=== PATIENT | male | born 1980 | race Caucasian/White ===

== ENCOUNTER 2016-08-20 19:33 | Emergency (ER) | payer MEDICARE, BC ==
--- NOTE | 2016-08-20 19:48 | ER Document Report ---
ED Medical Screen (RME) - General Stated Complaint: POSSIBLE SEIZURE Notes: patient was home alone doing chores and took a nap pt says his mom called him and she was worried that he was slurring his speech pt states he felt disoriented for approximately < 5 minutes takes Keppra 1500mg BID last seizure was July 18 2016, diagnosed as epileptic seizure by Efraín Has not had any other witnessed seizure activity today denies any fevers, chill admits to night sweats PMH significant for grade 3 anoplastic astrocytoma (glioblastoma) TRAVEL OUTSIDE OF THE [place] IN LAST 30 DAYS: No - Related Data Allergies/Adverse Reactions: No Known Allergies Allergy (Verified 08/20/16 19:47) Past Medical History - Past Medical History Cardiac Medical History: Reports: Hx Hypertension Psychiatric Medical History: Reports: Hx Attention Deficit Hyperactivity Disorder - Immunizations Hx Diphtheria, Pertussis, Tetanus Vaccination: Yes Physical Exam - Vital signs Vitals: Temp Pulse Resp BP Pulse Ox 99.0 F 91 18 147/98 H 98 08/20/16 19:43 08/20/16 19:43 08/20/16 19:43 08/20/16 19:43 08/20/16 19:43 Course - Vital Signs Vital signs: Temp Pulse Resp BP Pulse Ox 99.0 F 91 18 147/98 H 98 08/20/16 19:43 08/20/16 19:43 08/20/16 19:43 08/20/16 19:43 08/20/16 19:43
--- NOTE | 2016-08-20 23:17 | ER Document Report ---
ED General - General Mode of Arrival: Ambulatory Information source: Patient, Parent TRAVEL OUTSIDE OF THE [place] 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 Patient states that he was alone at home when he "dozed" out on his bed. The mother states that she called the patient on 2 separate occasions at approximately 1.5 hours in between each call. The patient woke up and called his mother back. Mother states that the patient had slurred speech and was having difficulty speaking. Patient explains that he felt disorientated while on the phone with his mother. Patient states that his seizures started in February 2014 when he had a grand mal seizure and was subsequently diagnosed with the tumor. Patient had another seizure on 2015 and was hospitalized under suspicion of a possible stroke. An MRI was performed and a stroke was ruled out by [facility]. Patient is currently on 1500 mg of Keppra BID (increased dose after stroke on 07/18/2016). Patient's neuro- oncologist is Dr. Sebastian and neuro-oncology surgeon is Dr. Burkett, both at [facility]. (KATERYNA LEDEZMA) - Related Data Allergies/Adverse Reactions: No Known Allergies Allergy (Verified 08/20/16 19:47) Past Medical History - General Information source: Patient - Social History Smoking Status: Never Smoker Chew tobacco use (# tins/day): No Frequency of alcohol use: None Drug Abuse: None Family History: Reviewed & Not Pertinent Patient has suicidal ideation: No Patient has homicidal ideation: No - Past Medical History Cardiac Medical History: Reports: Hx Hypertension Neurological Medical History: Reports: Hx Seizures - February 2014 Malignancy Medical History: Reports Hx Brain Cancer - anoplastic astrocytoma Psychiatric Medical History: Reports: Hx Attention Deficit Hyperactivity Disorder - Immunizations Hx Diphtheria, Pertussis, Tetanus Vaccination: Yes <KATERYNA LEDEZMA - Last Filed: 08/21/16 01:28> Review of Systems - Review of Systems Constitutional: No symptoms reported EENT: No symptoms reported Cardiovascular: No symptoms reported Respiratory: No symptoms reported Gastrointestinal: No symptoms reported Genitourinary: No symptoms reported Male Genitourinary: No symptoms reported Musculoskeletal: No symptoms reported Skin: No symptoms reported Hematologic/Lymphatic: No symptoms reported Neurological/Psychological: See HPI, Speech impairment - difficulty speaking with slurred speech, Other - "Disorientated" -: Yes All other systems reviewed and negative <KATERYNA LEDEZMA - Last Filed: 08/21/16 01:28> Physical Exam - General General appearance: Alert In distress: None - HEENT Head: Normocephalic, Atraumatic, Other - Scar to the left upper forehead. Eyes: Normal Extraocular movements intact: Yes Pupils: PERRL - Respiratory Respiratory status: No respiratory distress Breath sounds: Normal - Cardiovascular Rhythm: Regular Heart sounds: Normal auscultation - Abdominal Inspection: Normal - Back Back: Normal - Extremities General upper extremity: Normal inspection, Normal ROM General lower extremity: Normal inspection, Normal ROM - Neurological Neuro grossly intact: Yes Cognition: Normal Orientation: AAOx4 Ernesto Coma Scale Eye Opening: Spontaneous Ernesto Coma Scale Verbal: Oriented [place] Coma Scale Motor: Obeys Commands [place] Coma Scale Total: 15 Speech: Normal - Psychological Associated symptoms: Normal affect, Normal mood - Skin Skin Temperature: Warm Skin Moisture: Dry Skin Color: Normal <KATERYNA LEDEZMA - Last Filed: 08/21/16 01:28> Course - Laboratory Result Diagrams: 08/20/16 23:11 08/20/16 23:11 <KATERYNA LEDEZMA - Last Filed: 08/21/16 01:28> - Laboratory Result Diagrams: 08/20/16 23:11 08/20/16 23:11 - Diagnostic Test Radiology reviewed: Reports reviewed <FARTUN CASILLAS - Last Filed: 08/21/16 04:31> - Re-evaluation Re-evalutation: 08/21/16 Patient appears well. He is not postictal. No seizure activity in the emergency department. No definitive seizure activity today. Patient is taking Keppra. Patient is leukopenic and thrombocytopenic. Patient has been discussed with his oncologist here in town, Dr. Mora, who would like the patient to follow-up on Wednesday. There is a Keppra level pending. Patient agrees with this plan. Patient lives with his mother and will not be alone. ( FARTUN CASILLAS) - Vital Signs Vital signs: Temp Pulse Resp BP Pulse Ox 99.0 F 91 23 H 138/94 H 97 08/20/16 19:43 08/20/16 19:43 08/21/16 00:35 08/21/16 00:35 08/21/16 00:35 (KATERYNA LEDEZMA) (FARTUN CASILLAS) - Laboratory Laboratory results interpreted by me: 08/20/16 08/20/16 23:11 23:11 WBC 3.6 L RDW 17.4 H Plt Count 136 L Monocytes % 13.3 H AST 77 H ALT 145 H Total Protein 6.2 L (FARTUN CASILLAS) Discharge <KATERYNA LDEEZMA - Last Filed: 08/21/16 01:28> <FARTUN CASILLAS - Last Filed: 08/21/16 04:31> - Discharge Clinical Impression: Possible seizure Leukopenia Qualifiers: Leukopenia type: neutropenia Neutropenia type: secondary to cancer chemotherapy Qualified Code(s): D70.1 - Agranulocytosis secondary to cancer chemotherapy Condition: Stable Disposition: HOME, SELF-CARE Additional Instructions: Please follow-up with your oncologist on Wednesday. Please return if you have any worsening or concerning symptoms. There is a Keppra level pending that your doctor can check on Wednesday. Referrals: TRE DIAZ MD [Primary Care Provider] - Follow up as needed WADE MORA MD [ACTIVE STAFF] - 08/24/16 Maximo Attestation: 08/21/16 04:28 I personally performed the services described in the documentation, reviewed and edited the documentation which was dictated to the scribe in my presence, and it accurately records my words and actions. (FARTUN CASILLAS) Scribe Documentation <KATERYNA LEDEZMA - Last Filed: 08/21/16 01:28> <FARTUN CASILLAS - Last Filed: 08/21/16 04:31> - Scribe Written by Alexe:: MAXIMO CHRISTIANSON 08/21/16 0023 Acting as scribe for: (KATERYNA LEDEZMA) (FARTUN CASILLAS)
[2016-08-20 23:23] LABS: ABSOLUTE EOSINOPHILS # (AUTO) 0.1 10^3/uL (0.0-0.6); ABSOLUTE LYMPHOCYTES (AUTO) 0.7 10^3/uL (0.5-4.7); ABSOLUTE MONOCYTES (AUTO) 0.5 10^3/uL (0.1-1.4); ABSOLUTE NEUT (AUTO) 2.3 10^3/uL (1.7-8.2); BASOPHILS % (AUTO) 0.7 % (0-2); EOSINOPHILS % (AUTO) 3.3 % (0-6); HEMATOCRIT 39.8 % (37.9-51.0); HEMOGLOBIN 13.8 g/dL (13.5-17.0); HGB HCT DIFFERENCE 1.6; LYMPHOCYTES % (AUTO) 18.8 % (13-45); MEAN CORPUSCULAR HEMOGLOBIN 31.3 pg (27.0-33.4); MEAN CORPUSCULAR HGB CONC 34.6 g/dL (32.0-36.0); MEAN CORPUSCULAR VOLUME 91 fl (80-97); MONOCYTES % (AUTO) 13.3 % (3-13); RED CELL DISTRIBUTION WIDTH 17.4 % (11.5-14.0); SEGMENTED NEUTROPHILS % (AUTO) 63.9 % (42-78); WHITE BLOOD COUNT 3.6 10^3/uL (4.0-10.5)
[2016-08-20 23:46] LABS: ALANINE AMINOTRANSFERASE 145 U/L (21-72); ALBUMIN 3.6 g/dL (3.5-5.0); ALKALINE PHOSPHATASE 102 U/L (38-126); ANION GAP 10 (5-19); ASPARTATE AMINO TRANSFERASE 77 U/L (17-59); BILIRUBIN,TOTAL 0.8 mg/dL (0.2-1.3); BLOOD UREA NITROGEN 16 mg/dL (7-20); CALCIUM 8.8 mg/dL (8.4-10.2); CARBON DIOXIDE 25 mmol/L (22-30); CHLORIDE 106 mmol/L (98-107); CREATININE RESULT 0.81 mg/dL (0.52-1.25); GLUCOSE 105 mg/dL (75-110); POTASSIUM 4.2 mmol/L (3.6-5.0); SODIUM 141.1 mmol/L (137-145); TOTAL PROTEIN 6.2 g/dL (6.3-8.2)
[2016-08-21 00:36] VITALS: BP 138/94
== END 2016-08-21 00:40 | disposition home or self-care (01) ==
LOC: ER 19:33
DX: D70.1 Agranulocytosis secondary to cancer chemotherapy (principal); R47.81 Slurred speech; Z79.899 Other long term (current) drug therapy
CPT/HCPCS: 36415; 80053; 80177; 85025; 99284